=== PATIENT | male | born 1970 | race Caucasian/White ===

== ENCOUNTER 2021-03-29 15:52 | Observation (INO) | payer OTHER ==
[2021-03-29 16:17] LABS: #Basophils 0.1 thou/uL (0.0-0.2); #Eosinphils 0.2 thou/uL (0.0-0.7); #Monocytes 0.7 thou/uL (0.11-0.59); #Neutrophils 5.6 thou/uL (1.40-6.50); %Eosinophils 2.5 % (0.0-10.0); %Lymphocytes 31.6 % (21.0-51.0); %Neutrophils 57.9 % (42.0-75.0); Hemoglobin 14.9 g/dL (14.0-18.0); Mean Corpuscular HGB CONC 32.9 g/dL (32.0-36.0); Mean Corpuscular Hemoglobin 31.1 pg (27.0-31.0); Mean Corpuscular Volume 94.5 fL (78.0-98.0); Mean Platelet Volume 7.3 fL (7.4-10.4); Platelet Count 330 thou/uL (130-400); RBC Distribution Width 11.9 % (11.5-14.5); Red Blood Cell (RBC) Count 4.79 mill/uL (4.70-6.10); White Blood Cell (WBC) Count 9.6 thou/uL (4.8-10.8)
[2021-03-29 16:41] LABS: ALT (SGPT) 31 U/L (8-55); AST (SGOT) 24 U/L (5-34); Albumin 4.4 g/dL (3.5-5.0); Alkaline Phosphatase 81 U/L (40-110); Anion Gap 17 mmol/L (10-20); BUN (Urea Nitrogen) 19 mg/dL (8.4-25.7); Bilirubin, Total 0.5 mg/dL (0.2-1.2); Calc. Creatinine Clearance 0 mL/min (70-130); Calcium 9.6 mg/dL (7.8-10.44); Carbon Dioxide 23 mmol/L (22-29); Chloride 105 mmol/L (98-107); Globulin 3.3 g/dL (2.4-3.5); Glucose 155 mg/dL (70-105); Protein, Total 7.7 g/dL (6.0-8.3); Sodium 141 mmol/L (136-145)
[2021-03-29] MEDS ORDERED: Tranexamic Acid 1,000 MG/10 ML VIAL ONE (17:15)
[2021-03-29] MEDS ORDERED: Dextrose 5% in Water 1,000 ML IV PRN ×2 (17:25→21:23)
[2021-03-29] MEDS ORDERED: Ondansetron ODT 4 MG TAB PO PRN ×2 (17:25→21:24)
[2021-03-29] MEDS ORDERED: Ondansetron PF 4 MG/2 ML Vial IVP PRN ×2 (17:25→21:24)
[2021-03-29] MEDS ORDERED: hydrALAZINE 20 MG/ML VIAL SLOW IVP PRN ×2 (17:25→21:24)
[2021-03-29] MEDS ORDERED: Dextrose 50% Abboject 50 ML SYRINGE SLOW IVP PRN ×2 (17:25→21:23)
[2021-03-29] MEDS ORDERED: Acetaminophen 500 MG TAB PO PRN (17:30)
[2021-03-29 17:47] LABS: Magnesium 2.1 mg/dL (1.6-2.6); Phosphorus 3.2 mg/dL (2.3-4.7)
[2021-03-29 17:48] LABS: INR-International Normal Ratio 0.9; PTT 24.1 sec (22.9-36.1); Prothrombin Time 12.4 sec (12.0-14.7)
[2021-03-29] MEDS ORDERED: Tranexamic Acid 1,000 MG in Sodium Chloride 0.9% 250 ML 250 ML IVPB SCH (18:00)
[2021-03-29] MEDS ORDERED: Famotidine 20 MG TAB PO SCH (21:00)
[2021-03-29] MEDS: Acetaminophen 500 MG TAB PO PRN (21:35)
[2021-03-29 22:46] VITALS: BMI 33.9
[2021-03-30 02:16] LABS: SARS-CoV-2 PCR by NAA Not Detected (NotDetected)
[2021-03-30] MEDS: Acetaminophen 500 MG TAB PO PRN ×2 (05:29→11:12)
[2021-03-30] MEDS ORDERED: Amlodipine 10 MG TAB PO SCH (09:00)
[2021-03-30] MEDS ORDERED: Non-Formulary Item 1 EACH (Lisinopril [Lisinopril] 40 MG Tablet) PO SCH (09:00)
[2021-03-30] MEDS ORDERED: Lisinopril 20 MG TAB PO SCH (09:00)
[2021-03-30] MEDS ORDERED: Famotidine 20 MG TAB PO SCH (09:00)
[2021-03-30 11:50] VITALS: BP 144/85; TEMP 97.5
== END 2021-03-30 12:18 | disposition home or self-care (01) ==
LOC: ERS 15:52 → SURG B 20:11
PROVIDERS: ADMIT Surgery; ATTEND Surgery
DX: S06.5X9A Traumatic subdural hemorrhage with loss of consciousness of unspecified duration, initial encounter (principal); S06.6X9A Traumatic subarachnoid hemorrhage with loss of consciousness of unspecified duration, initial encounter; S02.11GA Other fracture of occiput, right side, initial encounter for closed fracture; S01.01XA Laceration without foreign body of scalp, initial encounter; I10 Essential (primary) hypertension; F17.220 Nicotine dependence, chewing tobacco, uncomplicated; Z79.82 Long term (current) use of aspirin; Z79.899 Other long term (current) drug therapy; Z20.822 Contact with and (suspected) exposure to COVID-19; V68.4XXA Person boarding or alighting a heavy transport vehicle injured in noncollision transport accident, initial encounter
CPT/HCPCS: 70450; 72125; 80053; 83735; 84100; 85025; 85610; 85730; 87635; 93005; 96365; 96366; 96376; G0378; U0003; U0005